=== PATIENT | male | born 1990 | race Two or more races ===

== ENCOUNTER 2023-11-18 16:53 | Emergency (ER) | payer OTHER ==
[~2023-11-18] VITALS: Ht 165.1 cm; Wt 83.9 kg
[2023-11-18] MEDS ORDERED: EMPA25TA PO (17:18)
[2023-11-18] MEDS ORDERED: NALT50TA PO (17:18)
[2023-11-18] MEDS ORDERED: OMEP20TA5 PO (17:18)
[2023-11-18] MEDS ORDERED: RIVA10TA PO (17:18)
[2023-11-18] MEDS ORDERED: SPIR25TA6 PO (17:18)
[2023-11-18] MEDS ORDERED: GABA-532 PO (17:18)
[2023-11-18] MEDS ORDERED: SACU1TAB PO (17:18)
[2023-11-18] MEDS ORDERED: TORS10TA17 PO (17:18)
[2023-11-18 17:54] LABS: BASOPHILS # (AUTO) 0.1 K/UL (0.0-0.2); BASOPHILS % (AUTO) 1.3 % (0.0-2.0); EOSINOPHILS # (AUTO) 0.1 K/uL (0.0-0.7); EOSINOPHILS % (AUTO) 1.1 % (0.0-7.0); HEMATOCRIT 44.3 % (36.7-47.1); HEMOGLOBIN 14.4 g/dL (12.5-16.3); LYMPHOCYTES # (AUTO) 1.1 K/uL (0.8-4.8); LYMPHOCYTES % (AUTO) 16.7 % (20.5-51.5); MEAN CORPUSCULAR HGB CONC 33 g/dL (32.5-36.3); MONOCYTES # (AUTO) 0.7 K/uL (0.1-1.30); MONOCYTES % (AUTO) 10.3 % (0.0-11.0); NEUTROPHILS # (AUTO) 4.5 K/uL (1.8-8.9); NEUTROPHILS % (AUTO) 70.6 % (38.5-71.5); PLATELET COUNT (AUTO) 357 K/uL (152-348); RED BLOOD CELL COUNT(AUTO) 4.66 MIL/uL (4.06-5.63); WHITE BLOOD COUNT (AUTO) 6.4 K/uL (3.6-10.2)
[2023-11-18 18:01] LABS: CARBON DIOXIDE 23 mmol/L (21-32); CHLORIDE 108 mmol/L (98-107); CREATININE 1.2 mg/dL (0.6-1.3); GLUCOSE 102 mg/dL (74-106); SODIUM SERUM 142 mmol/L (136-145); UREA NITROGEN, BLOOD 19 mg/dL (7-18)
[2023-11-18 18:03] LABS: DIFFERENTIAL COMMENT 1
[2023-11-18 18:09] LABS: ALANINE AMINOTRANSFERASE 76 U/L (16-63); ALBUMIN 2.5 g/dL (3.4-5.0); ALKALINE PHOSPHATASE 83 U/L (50-136); ASPARTATE AMINOTRANSFERASE 75 U/L (15-37); BILIRUBIN,DIRECT 0.4 mg/dL (0.0-0.2); BILIRUBIN,TOTAL 0.7 mg/dL (0.2-1.0); LIPASE 51 U/L (16-77); TOTAL PROTEIN, SERUM 7.1 g/dL (6.4-8.2)
[2023-11-18] MEDS ORDERED: IOHEXOL 350 100 ML INFUS..BTL ONE (18:37)
[2023-11-18] MEDS ORDERED: SWABABLE VALVE TRANSFER SET EA MC ONE (18:37)
[2023-11-18] MEDS ORDERED: IV NORMAL SALINE 250 ML IV ONE (18:39)
[2023-11-18] MEDS ORDERED: PANTOPRAZOLE SODIUM 40 MG TABLET.DR PO ONE (20:09)
[2023-11-18] MEDS ORDERED: DICYCLOMINE HCL 20 MG TABLET ONE (20:09)
[2023-11-18] MEDS ORDERED: ONDANSETRON HCL 4 MG TABLET ONE (20:10)
[2023-11-18] MEDS: DICYCLOMINE HCL 10 MG CAPSULE PO STA (20:11)
[2023-11-18] MEDS: PANTOPRAZOLE SODIUM 40 MG TABLET.DR PO ONE (20:11)
[2023-11-18] MEDS: ONDANSETRON HCL 4 MG TABLET PO ONE (20:12)
[2023-11-18] MEDS ORDERED: DICY10CA13 PO (20:31)
[2023-11-18] MEDS ORDERED: ONDA4TAB5 PO (20:31)
[2023-11-18] MEDS ORDERED: PANT40TA2 PO (20:31)
[2023-11-19 00:23] VITALS: BP 118/79; O2SAT 100
== END 2023-11-19 00:23 | disposition home or self-care (01) ==
LOC: ER 16:55
DX: R10.13 Epigastric pain (principal); I50.9 Heart failure, unspecified; E11.9 Type 2 diabetes mellitus without complications; Z79.899 Other long term (current) drug therapy; Z88.1 Allergy status to other antibiotic agents
CPT/HCPCS: 99285; 71275; 71045; 80076; 80048; 83880; 83690; 85025; 85379; 85730; 84484; 36415; 93005; 74175; Q9967; A4606; A4663; Q0162